=== PATIENT | male | born 1990 | race African-American/Black ===

== ENCOUNTER 2022-10-10 08:51 | Emergency (ER) | payer MEDICAID ==
[~2022-10-10] VITALS: Ht 180.3 cm; Wt 69.0 kg
[2022-10-10 09:18] VITALS: O2SAT 100
[2022-10-10] MEDS ORDERED: ACETAMINOPHEN 325MG TABLET PO ONE (09:30)
[2022-10-10] MEDS ORDERED: IBUPROFEN 400MG TABLET PO ONE (09:30)
[2022-10-10] MEDS ORDERED: CEFTRIAXONE SODIUM 500 MG/VIAL IM ONE (09:30)
[2022-10-10] MEDS: IBUPROFEN 400MG TABLET PO NR ×2 (11:17→12:52)
[2022-10-10] MEDS: ACETAMINOPHEN 325MG TABLET PO NR ×2 (11:17→12:52)
[2022-10-10] MEDS: CEFTRIAXONE SODIUM 500 MG/VIAL IM NR ×3 (11:18→12:52)
[2022-10-10 12:22] LABS: CLARITY URINE CLEAR (CLEAR); COLOR URINE YELLOW (YELLOW); GLUCOSE URINE NEGATIVE (NEGATIVE); KETONES URINE TRACE (NEGATIVE); LEUKOCYTE ESTERASE URINE NEGATIVE (NEGATIVE); NITRITE URINE NEGATIVE (NEGATIVE); OCCULT BLOOD URINE NEGATIVE (NEGATIVE); PROTEIN URINE NEGATIVE (NEGATIVE); SPECIFIC GRAVITY URINE 1.013 (1.005-1.030)
[2022-10-10] MEDS ORDERED: DOXY100C5 MT (12:30)
[2022-10-10 12:52] VITALS: BP 158/103
[2022-10-10 12:58] VITALS: PULSE 82; RESP 16; TEMP 98.5
[2022-10-12 13:12] LABS: CHLAMYDIA TRACHOMATIS NAA Negative (Negative); NEISSERIA GONORRHOEAE NAA Negative (Negative)
== END 2022-10-10 13:02 | disposition home or self-care (01) ==
LOC: ER 09:07
DX: N50.811 Right testicular pain (principal); N45.3 Epididymo-orchitis
CPT/HCPCS: 87491; 87591; 81003; 93976; 76870; 96372; 99285; J0696; Z7610 ×2